=== PATIENT | male | born 2000 | race Caucasian/White ===

== ENCOUNTER → 2019-03-28 | Outpatient (CLI) | payer BC ==
--- NOTE | 2019-03-28 21:33 | XR ---
EXAM TYPE: LUMBAR SPINE X RAY SERIES COMPARISON: NONE HISTORY: Pain TECHNIQUE: 3 views are submitted. FINDINGS: Alignment is anatomic. The pedicles are intact. The transverse processes are intact. There multipl e Schmorl's nodes. No spondylolisthesis. IMPRESSION: 1. Schmorl's nodes if symptoms persist consider MRI..
--- NOTE | 2019-03-28 21:35 | XR ---
EXAMINATION TYPE: XR thoracic spine complete DATE OF EXAM: 03/28/2019 COMPARISON: NONE HISTORY: Chronic low back pain Alignment is anatomic. There is no compression deformities. Vertebral body height and disc interspa elisa are maintained. Spurring noted anteriorly at multiple levels. IMPRESSION: 1. No acute abnormality. If symptoms persist follow-up MRI recommended.
== END | disposition home or self-care (01) ==
LOC: LABWHC1 17:15
PROVIDERS: ATTEND Physician Assistant
DX: M54.5 Low back pain (principal); M54.6 Pain in thoracic spine
CPT/HCPCS: 72072; 72100